=== PATIENT | female | born 1960 | race Caucasian/White ===

== ENCOUNTER 2017-03-03 22:29 | Emergency (ER) | payer OTHER ==
[2017-03-03 23:06] LABS: #Basophils 0.1 thou/uL (0.0-0.2); #Eosinphils 0.4 thou/uL (0.0-0.7); #Lymphocytes 4.3 thou/uL (1.20-3.40); #Monocytes 1.2 thou/uL (0.11-0.59); %Basophils 0.9 % (0.0-1.0); %Eosinophils 2.9 % (0.0-10.0); %Lymphocytes 30.3 % (21.0-51.0); %Monocytes 8.9 % (0.0-10.0); Hemoglobin 13.3 g/dL (12.0-16.0); Mean Corpuscular HGB CONC 32.5 g/dL (32.0-36.0); Mean Corpuscular Hemoglobin 29.3 pg (27.0-31.0); Mean Platelet Volume 10.7 fL (7.4-10.4); Platelet Count 220 thou/uL (130-400); RBC Distribution Width 14.4 % (11.5-14.5); Red Blood Cell (RBC) Count 4.55 mill/uL (4.20-5.40)
--- NOTE | 2017-03-03 23:06 | CT ---
PRELIMINARY REPORT/[facility]/EMERGENCY AFTER HOURS PROCEDURE: EXAM: CT Head Without Intravenous Contrast CLINICAL HISTORY: 56 years old, female; Signs and symptoms; Altered mental status/memory loss and speech disturbance; Confusion or disorientation; Unspecified; Patient HX: Pt presents to the er for confusion; AMS TECHNIQUE: Axial computed tomography images of the head/brain without intravenous contrast. COMPARISON: No relevant prior studies available. FINDINGS: No definite or depressed skull fracture. Included paranasal sinuses are clear. No acute intracranial hemorrhage or mass effect. Ventricle size is normal for age. No definite acute infarct by CT. MRI could be more sensitive/specific for an acute infarct if clinically indicated. IMPRESSION: No acute intracranial bleed or mass effect. No definite acute infarct by CT, see above. Thank you for allowing us to participate in the care of your patient. Dictated and Authenticated by: Gus Angeles MD 03/03/2017 11:01 PM Central Time ([place] \T\ [place]) FINAL REPORT CT OF THE BRAIN WITHOUT CONTRAST 03/03/[address] was done for evaluation of mental status changes. The ventricles are normal in size with no shift. No intracranial bleeding, mass, or sign of stroke w as found. There is good wang-white distinction. Subtle or early strokes can sometimes only be visibl e via MRI. The calvarium appears intact. The visible paranasal sinuses are clear. IMPRESSION: No acute intracranial finding. REPORT IN AGREEMENT WITH PRELIMINARY READING BY MACIE. POS: HOME
[2017-03-03 23:15] LABS: INR-International Normal Ratio 1.1; Prothrombin Time 14.3 SEC (12.0-14.7)
[2017-03-03 23:24] LABS: Acetaminophen Less than 3.0 mcg/mL (10.0-30.0); Alcohol Less than 10 mg/dL (Less than 10); Salicylate Less than 5.0 mg/dL (15.0-30.0)
[2017-03-03 23:25] LABS: CKMB 0.6 ng/mL (0-6.6); Troponin I Less than 0.010 ng/mL (< 0.028)
[2017-03-03 23:26] LABS: ALT (SGPT) 15 U/L (0-55); AST (SGOT) 12 U/L (5-34); Alkaline Phosphatase 96 U/L (40-150); Anion Gap 13 mmol/L (10-20); BUN (Urea Nitrogen) 13 mg/dL (9.8-20.1); Bilirubin, Total 0.3 mg/dL (0.2-1.2); Calc. Creatinine Clearance 0 mL/min (70-130); Calcium 9.5 mg/dL (7.8-10.44); Carbon Dioxide 28 mmol/L (22-29); Chloride 103 mmol/L (98-107); Estimated GFR-MDRD 83; Globulin 3.1 g/dL (2.4-3.5); Glucose 135 mg/dL (70-105); Potassium 3.7 mmol/L (3.5-5.1); Protein, Total 7.1 g/dL (6.0-8.3); Sodium 140 mmol/L (136-145)
--- NOTE | 2017-03-04 07:28 | RAD ---
PORTABLE CHEST: Date: 03/03/17 An AP portable film at 2325 hours is compared with an 10/08/15 study. FINDINGS: The heart is acceptable in size for AP projection and body habitus. There is no congestive change or large pleural effusion. No gross lobar infiltrate was noted. Subtle basilar infiltrates would proba sterling be missed on this study. The trachea is midline. IMPRESSION: No definite acute finding. POS: HOME
== END 2017-03-03 23:53 | disposition short-term general hospital (02) ==
LOC: BURERS 22:29
DX: I63.9 Cerebral infarction, unspecified (principal); E11.9 Type 2 diabetes mellitus without complications; J44.9 Chronic obstructive pulmonary disease, unspecified; I50.9 Heart failure, unspecified; F32.9 Major depressive disorder, single episode, unspecified; F17.210 Nicotine dependence, cigarettes, uncomplicated; Z79.899 Other long term (current) drug therapy; Z79.2 Long term (current) use of antibiotics; Z79.01 Long term (current) use of anticoagulants; Z79.82 Long term (current) use of aspirin
CPT/HCPCS: 36416; 70450; 71010; 80053; 80307; 82553; 83880; 84443; 84484; 85025; 85610; 93005

== ENCOUNTER 2019-05-14 06:27 | Emergency (ER) | payer OTHER ==
[2019-05-14 06:59] LABS: Bilirubin Negative (Negative); Blood, Urine Trace (Negative); Clarity Clear (Clear); Glucose, Urine (Dipstick) Negative (Negative); Leukocyte Negative (Negative); Nitrite Negative (Negative); Protein, Urine (Dipstick) Negative (Neg-Trace); Urobilinogen 0.2 mg/dL (0.2-1.0); WBC/HPF None Seen HPF (0-3)
[2019-05-14 07:00] LABS: Bacteria/HPF None Seen HPF (None Seen); Squamous Epithelial 0-3 HPF (0-3)
[2019-05-14 07:06] LABS: #Basophils 0.1 thou/uL (0.0-0.2); #Eosinphils 0.3 thou/uL (0.0-0.7); #Lymphocytes 2.6 thou/uL (1.20-3.40); #Monocytes 1.1 thou/uL (0.11-0.59); %Basophils 0.7 % (0.0-1.0); %Eosinophils 2.1 % (0.0-10.0); %Lymphocytes 16.4 % (21.0-51.0); %Monocytes 6.6 % (0.0-10.0); %Neutrophils 74.2 % (42.0-75.0); Hemoglobin 14.8 g/dL (12.0-16.0); Mean Corpuscular HGB CONC 30.6 g/dL (32.0-36.0); Mean Corpuscular Hemoglobin 28.5 pg (27.0-31.0); Mean Corpuscular Volume 93.2 fL (78.0-98.0); Mean Platelet Volume 10.6 fL (7.4-10.4); Platelet Count 198 thou/uL (130-400); Red Blood Cell (RBC) Count 5.18 mill/uL (4.20-5.40); White Blood Cell (WBC) Count 16.1 thou/uL (4.8-10.8)
[2019-05-14 07:24] LABS: ALT (SGPT) 23 U/L (8-55); AST (SGOT) 14 U/L (5-34); Albumin 4.3 g/dL (3.5-5.0); Alkaline Phosphatase 85 U/L (40-150); Anion Gap 18 mmol/L (10-20); BUN (Urea Nitrogen) 13 mg/dL (9.8-20.1); Bilirubin, Total 0.3 mg/dL (0.2-1.2); Calc. Creatinine Clearance 0 mL/min (70-130); Calcium 10.2 mg/dL (7.8-10.44); Carbon Dioxide 27 mmol/L (22-29); Chloride 99 mmol/L (98-107); Estimated GFR-MDRD 74; Globulin 2.9 g/dL (2.4-3.5); Glucose 196 mg/dL (70-105); Lipase 30 U/L (8-78); Potassium 3.7 mmol/L (3.5-5.1); Protein, Total 7.2 g/dL (6.0-8.3); Sodium 140 mmol/L (136-145)
[2019-05-14] MEDS ORDERED: Ketorolac Tromethamine 30 MG/ML VIAL ONE ×2 (07:46→07:51)
[2019-05-14] MEDS ORDERED: Acetaminophen/Codeine 30-300mg Tablet ONE (08:04)
--- NOTE | 2019-05-14 08:20 | CT ---
RENAL CALCULUS PROTOCOL NONCONTRAST ABDOMEN CT AND PELVIS: Date: 05/14/19 INDICATION: Left flank pain with hematuria. FINDINGS: There is mild to moderate left hydronephrosis and hydroureter, which results from punctate calcificat ion of the left UVJ, approximately 2 mm in size. There is additional calcification within the left he mipelvis, although this does reside anterolateral to the confines of the left ureter. Localized, surr ounding fat stranding in this region is present. No evidence of right side urolithiasis. Limited eval uation of the bowel, lymph nodes, solid abdominal organs, and vasculature on the basis of noncontrast technique. There are scattered pulmonary parenchymal opacities at each lung base, incompletely evalu ated, as well as granulomatous calcification. No free air. There is eventration of the ventral abdomi nal wall. Scattered vascular disease is present. There are colonic diverticula. Scattered osseous deg enerative changes are present. IMPRESSION: Mild to moderate left hydroureteronephrosis with punctate, approximately 2 mm, left UVJ calculus. In addition, there is calcification of the left hemipelvis, although this does reside anterolateral to t he course of the left ureter. Mild surrounding fat stranding of this region could relate to its proxi mity to the left ureter. As necessary, findings may be further assessed with follow-up IVP as clinica lly necessary. Additional details as discussed above. POS: [facility]
--- NOTE | 2019-05-14 10:48 | RAD ---
PORTABLE CHEST: Date: 05/14/19 An AP portable film at 0706 hours is compared with the 03/03/17 study. FINDINGS: The cardiac size is the same as before. There is no major lobar infiltrate or effusion. A minimal salas unt of streaking in the right base may be atelectasis or scarring. The overlying soft tissues decreas e the sensitivity in this region. The mediastinum appears normal and the trachea is midline. IMPRESSION: Little change since 2017. POS: HOME
== END 2019-05-14 08:11 | disposition home or self-care (01) ==
LOC: BURERS 06:27
DX: N13.2 Hydronephrosis with renal and ureteral calculous obstruction (principal); E11.9 Type 2 diabetes mellitus without complications; F32.9 Major depressive disorder, single episode, unspecified; Z79.84 Long term (current) use of oral hypoglycemic drugs
CPT/HCPCS: 71045; 74176; 80053; 81003; 81015; 83690; 85025; 96374; J1885

== ENCOUNTER 2020-12-28 09:53 | Emergency (ER) | payer OTHER ==
[2020-12-28] MEDS ORDERED: Sodium Chloride 0.9% 100 ML ONE (10:18)
[2020-12-28] MEDS ORDERED: Cefepime 2 GM VIAL ONE (10:18)
[2020-12-28 10:31] LABS: Hemoglobin 13.5 g/dL (12.0-16.0); Mean Corpuscular HGB CONC 30.7 g/dL (32.0-36.0); Mean Corpuscular Hemoglobin 28.6 pg (27.0-31.0); Mean Platelet Volume 11.7 fL (7.4-10.4); Platelet Count 181 thou/uL (130-400); RBC Distribution Width 14.7 % (11.5-14.5); Red Blood Cell (RBC) Count 4.74 mill/uL (4.20-5.40); White Blood Cell (WBC) Count 15.2 thou/uL (4.8-10.8)
[2020-12-28 10:36] LABS: ALT (SGPT) 32 U/L (8-55); AST (SGOT) 21 U/L (5-34); Albumin 3.7 g/dL (3.4-4.8); Alkaline Phosphatase 108 U/L (40-110); Anion Gap 17 mmol/L (10-20); BUN (Urea Nitrogen) 30 mg/dL (9.8-20.1); Bilirubin, Total 0.4 mg/dL (0.2-1.2); Calc. Creatinine Clearance 0 mL/min (70-130); Calcium 9.8 mg/dL (7.8-10.44); Carbon Dioxide 26 mmol/L (23-31); Chloride 96 mmol/L (98-107); Globulin 3.5 g/dL (2.4-3.5); Glucose 196 mg/dL (80-115); Protein, Total 7.2 g/dL (5.8-8.1); Sodium 135 mmol/L (136-145)
[2020-12-28] MEDS ORDERED: Digoxin 0.5 MG/2 ML AMP ONE (10:41)
[2020-12-28 10:44] LABS: Clarity Turbid (Clear); Leukocyte Large (Negative)
[2020-12-28] MEDS ORDERED: Enoxaparin Sodium 100 MG/ML SYRINGE ONE (10:47)
[2020-12-28 10:48] LABS: Band 5 % (5-11); Lymphocytes 8 % (21-51); MDiff Complete? YES; Monocytes 17 % (0-10); Neutrophil 70 % (42-75)
[2020-12-28 10:50] LABS: Glucose, Urine (Dipstick) Unable to Interpret mg/dL (Negative); Ketone, Urine Unable to Interpret mg/dL (Negative); Nitrite Unable to Interpret (Negative); Protein, Urine (Dipstick) Unable to Interpret mg/dL (Neg-Trace)
[2020-12-28 10:51] LABS: Bilirubin Unable to Interpret (Negative); Blood, Urine Unable to Interpret (Negative); Urobilinogen UNABLE TO INTERPRET mg/dL (Less than 2)
[2020-12-28 10:52] LABS: Specific Gravity, Urine 1.022 (1.002-1.036)
[2020-12-28] MEDS ORDERED: Acetaminophen 500 MG TAB ONE (10:52)
[2020-12-28 10:55] LABS: Bacteria/HPF 3+ HPF (None Seen); RBC/HPF 0-3 HPF (0-3); Squamous Epithelial 0-3 HPF (0-3); WBC/HPF Greater Than 50 HPF (0-3)
[2020-12-28] MEDS ORDERED: Amiodarone In Dextrose 200 ML ONE (11:21)
[2020-12-28 11:53] LABS: SARS-CoV-2 NAA Rapid Test Not Detected (NotDetected)
--- NOTE | 2020-12-28 14:23 | RAD ---
PORTABLE CHEST: 12/28/20 An AP portable film at 1025 is compared with a 05/14/19 study. The heart is mildly enlarged and seems perhaps a little larger than before. Also the vasculature show s very slight prominence. I do not see a lobar consolidation or effusion. It would be difficult to de tect subtle infiltrates in the left base. IMPRESSION: Mild cardiomegaly. Possible slight vascular congestion. POS: HOME
== END 2020-12-28 12:15 | disposition short-term general hospital (02) ==
LOC: BURERS 09:53
DX: A41.9 Sepsis, unspecified organism (principal); I48.92 Unspecified atrial flutter; N39.0 Urinary tract infection, site not specified; Z20.822 Contact with and (suspected) exposure to COVID-19; I50.9 Heart failure, unspecified; E11.9 Type 2 diabetes mellitus without complications; J44.9 Chronic obstructive pulmonary disease, unspecified
CPT/HCPCS: 0240U; 51701; 71045; 80053; 81003; 81015; 83605; 85025; 87040; 87077; 87086; 87186; 93005; 96365; 96372; 96375; J0282; J0692; J1160; J1650; J3490

== ENCOUNTER 2025-06-17 09:34 | Inpatient (IN) | payer OTHER ==
[2025-06-17 09:48] LABS: #Basophils 0.2 thou/uL (0.0-0.2); #Eosinophils 0.4 thou/uL (0.0-0.7); #Lymphocytes 2.0 thou/uL (1.20-3.40); #Monocytes 0.7 thou/uL (0.11-0.59); #Neutrophils 7.9 thou/uL (1.40-6.50); %Basophils 1.6 % (0.0-1.0); %Eosinophils 3.3 % (0.0-10.0); %Lymphocytes 18.0 % (21.0-51.0); %Monocytes 5.9 % (0.0-10.0); %Neutrophils 71.1 % (42.0-75.0); Hematocrit 37.2 % (36.0-47.0); Hemoglobin 12.0 g/dL (12.0-16.0); Mean Corpuscular Hemoglobin 27.1 pg (27.0-31.0); Mean Corpuscular Volume 83.8 fl (78.0-98.0); Platelet Count 241 10x3/uL (130-400); Red Blood Cell (RBC) Count 4.44 mill/uL (4.20-5.40); White Blood Cell (WBC) Count 11.1 10x3/uL (4.8-10.8)
[2025-06-17] MEDS: Ondansetron PF 4 MG/2 ML Vial ONE (10:00)
[2025-06-17] MEDS: Ketorolac Tromethamine 30 MG (1 mL) VIAL ONE (10:00)
[2025-06-17 10:07] LABS: ALT (SGPT) 9 U/L (Less than 34); AST (SGOT) 18 U/L (11-34); Albumin 3.6 g/dL (3.1-4.5); Alkaline Phosphatase 109 U/L (40-110); Anion Gap 19 mmol/L (10-20); BUN (Urea Nitrogen) 13 mg/dL (9.8-20.1); Bilirubin, Total 0.3 mg/dL (0.3-1.2); Calc. Creatinine Clearance 0 mL/min (70-130); Calcium 9.4 mg/dL (7.8-10.44); Carbon Dioxide 19 mmol/L (23-31); Chloride 104 mmol/L (98-107); Globulin 3.5 g/dL (2.4-3.5); Glucose 177 mg/dL (80-115); Potassium 4.7 mmol/L (3.5-5.1); Sodium 137 mmol/L (136-145)
[2025-06-17] MEDS: cefTRIAXone (ROCEPHIN) 1 GM VIAL ONE (11:30)
[2025-06-17 13:07] LABS: Glucose, Urine (Dipstick) 500 mg/dL (Negative); Leukocyte Small (Negative); Protein, Urine (Dipstick) > or equal to 300 mg/dL (Neg-Trace); Specific Gravity, Urine 1.015 (1.005-1.030)
[2025-06-17 13:14] LABS: Bacteria/HPF 4+ HPF (None Seen); CAUTI Indications for Culture Pelvic or flank pain; RBC/HPF 21-50 HPF (0-3); WBC/HPF 21-50 HPF (0-3); Yeast-Budding 1+ HPF (None Seen)
[2025-06-17 13:17] LABS: Urine Culture Reflex Yes Yes
[2025-06-17 15:35] VITALS: BMI 35.6
[2025-06-17] MEDS ORDERED: Ondansetron PF 4 MG/2 ML Vial IVP PRN (18:34)
[2025-06-17] MEDS ORDERED: Senokot S 8.6-50 MG TAB PO PRN (19:00)
[2025-06-17] MEDS ORDERED: Bisacodyl 10 MG SUPP PR PRN (19:00)
[2025-06-17] MEDS: Mometasone 100 MCG/PUFF (1 INHALER) INH SCH (21:17)
[2025-06-17] MEDS: Aspirin 81 mg Enteric Coated Tablet PO SCH (21:20)
[2025-06-17] MEDS: Gabapentin 300 MG CAP PO SCH (21:20)
[2025-06-17] MEDS: DULoxetine 30 MG CAP PO SCH (21:21)
[2025-06-17] MEDS: Acetaminophen 325 MG TAB PO PRN (21:41)
[2025-06-18 08:20] LABS: #Basophils 0.1 thou/uL (0.0-0.2); #Eosinophils 0.2 thou/uL (0.0-0.7); #Lymphocytes 1.5 thou/uL (1.20-3.40); #Monocytes 0.9 thou/uL (0.11-0.59); #Neutrophils 7.8 thou/uL (1.40-6.50); %Basophils 0.7 % (0.0-1.0); %Eosinophils 1.9 % (0.0-10.0); %Lymphocytes 14.0 % (21.0-51.0); %Monocytes 8.6 % (0.0-10.0); %Neutrophils 74.8 % (42.0-75.0); Hematocrit 33.5 % (36.0-47.0); Hemoglobin 10.7 g/dL (12.0-16.0); MDiff Complete? YES; Mean Corpuscular Hemoglobin 27.1 pg (27.0-31.0); Mean Corpuscular Volume 84.8 fl (78.0-98.0); Platelet Count 194 10x3/uL (130-400); Red Blood Cell (RBC) Count 3.95 mill/uL (4.20-5.40); White Blood Cell (WBC) Count 10.4 10x3/uL (4.8-10.8)
[2025-06-18] MEDS: cefTRIAXone\\ROCEPHIN 2 GM in Sodium Chloride 0.9% 100 ML IVPB SCH (08:45)
[2025-06-18] MEDS: Enoxaparin 30 MG (0.3 mL) SYRINGE SC SCH (08:46)
[2025-06-18] MEDS: Pantoprazole 40 MG DR.TAB PO SCH (08:47)
[2025-06-18 08:48] LABS: Anion Gap 14 mmol/L (10-20); BUN (Urea Nitrogen) 12 mg/dL (9.8-20.1); Calc. Creatinine Clearance 92 mL/min (70-130); Calcium 8.5 mg/dL (7.8-10.44); Carbon Dioxide 24 mmol/L (23-31); Chloride 106 mmol/L (98-107); Glucose 113 mg/dL (80-115); Potassium 4.4 mmol/L (3.5-5.1); Sodium 140 mmol/L (136-145)
[2025-06-18] MEDS: Furosemide 40 MG TAB PO SCH (09:45)
[2025-06-18] MEDS ORDERED: cefTRIAXone\\ROCEPHIN 1 GM in Sodium Chloride 0.9% 100 ML IVPB SCH (12:00)
[2025-06-18] MEDS: Acetaminophen 325 MG TAB PO PRN (17:28)
[2025-06-19] MEDS: Enoxaparin 40 MG (0.4 mL) SYRINGE SC SCH (10:27)
[2025-06-20 05:27] LABS: #Basophils 0.1 thou/uL (0.0-0.2); #Eosinophils 0.3 thou/uL (0.0-0.7); #Lymphocytes 1.9 thou/uL (1.20-3.40); #Monocytes 0.8 thou/uL (0.11-0.59); #Neutrophils 8.3 thou/uL (1.40-6.50); %Basophils 0.5 % (0.0-1.0); %Eosinophils 3.0 % (0.0-10.0); %Lymphocytes 16.5 % (21.0-51.0); %Monocytes 7.2 % (0.0-10.0); %Neutrophils 72.8 % (42.0-75.0); Hematocrit 33.4 % (36.0-47.0); Hemoglobin 10.7 g/dL (12.0-16.0); Mean Corpuscular Hemoglobin 26.3 pg (27.0-31.0); Mean Corpuscular Volume 82.7 fl (78.0-98.0); Platelet Count 206 10x3/uL (130-400); Red Blood Cell (RBC) Count 4.05 mill/uL (4.20-5.40); White Blood Cell (WBC) Count 11.4 10x3/uL (4.8-10.8)
[2025-06-20 06:04] LABS: Anion Gap 17 mmol/L (10-20); BUN (Urea Nitrogen) 14 mg/dL (9.8-20.1); Calc. Creatinine Clearance 80 mL/min (70-130); Calcium 8.6 mg/dL (7.8-10.44); Carbon Dioxide 27 mmol/L (23-31); Chloride 101 mmol/L (98-107); Glucose 141 mg/dL (80-115); Potassium 4.1 mmol/L (3.5-5.1); Sodium 141 mmol/L (136-145)
[2025-06-22 11:28] VITALS: BP 119/73; TEMP 97.7
== END 2025-06-22 11:40 | disposition home or self-care (01) | DRG 690 ==
LOC: BURERS 09:34 → BURMED 11:10
PROVIDERS: ADMIT Family Medicine; ATTEND Family Medicine
DX: N12 Tubulo-interstitial nephritis, not specified as acute or chronic (principal); I50.32 Chronic diastolic (congestive) heart failure; J96.11 Chronic respiratory failure with hypoxia; J44.89 Other specified chronic obstructive pulmonary disease; G47.33 Obstructive sleep apnea (adult) (pediatric); I11.0 Hypertensive heart disease with heart failure; I48.91 Unspecified atrial fibrillation; E78.5 Hyperlipidemia, unspecified; E11.9 Type 2 diabetes mellitus without complications; F41.9 Anxiety disorder, unspecified; F32.A Depression, unspecified; Z90.49 Acquired absence of other specified parts of digestive tract; Z98.890 Other specified postprocedural states; Z99.81 Dependence on supplemental oxygen; Z79.899 Other long term (current) drug therapy; Z87.891 Personal history of nicotine dependence; Z90.710 Acquired absence of both cervix and uterus; Z79.82 Long term (current) use of aspirin; Z82.49 Family history of ischemic heart disease and other diseases of the circulatory system
CPT/HCPCS: 36415; 74176; 80048; 80053; 81001; 83605; 85025; 87040; 87077; 87086; 87186; 94640; 96374; 96375; J0696; J1650; J1885; J2272; J2405; J7030; J7620

== ENCOUNTER 2025-10-21 13:02 | Emergency (ER) | payer MEDICARE, OTHER ==
[2025-10-21 13:26] LABS: #Basophils 0.2 thou/uL (0.0-0.2); #Eosinophils 0.3 thou/uL (0.0-0.7); #Lymphocytes 2.6 thou/uL (1.20-3.40); #Monocytes 1.0 thou/uL (0.11-0.59); #Neutrophils 13.4 thou/uL (1.40-6.50); %Basophils 1.2 % (0.0-1.0); %Eosinophils 1.6 % (0.0-10.0); %Lymphocytes 14.6 % (21.0-51.0); %Monocytes 6.0 % (0.0-10.0); %Neutrophils 76.7 % (42.0-75.0); Hematocrit 46.9 % (36.0-47.0); Hemoglobin 13.4 g/dL (12.0-16.0); Mean Corpuscular Hemoglobin 24.6 pg (27.0-31.0); Mean Corpuscular Volume 85.7 fl (78.0-98.0); Platelet Count 380 10x3/uL (130-400); Red Blood Cell (RBC) Count 5.48 mill/uL (4.20-5.40); White Blood Cell (WBC) Count 17.5 10x3/uL (4.8-10.8)
[2025-10-21] MEDS ORDERED: Ipratropium Bromide 2.5 ml Neb ONE (13:29)
[2025-10-21] MEDS ORDERED: Magnesium 2 GM/50 ML BAG (IN WATER) ONE (13:29)
[2025-10-21] MEDS ORDERED: Albuterol 2.5 MG (0.5 mL) NEB ONE (13:29)
[2025-10-21 13:36] LABS: MDiff Complete? YES; Platelet Adequacy Comment Appears Adequate
[2025-10-21 13:38] LABS: ALT (SGPT) 7 U/L (Less than 34); AST (SGOT) 13 U/L (11-34); Albumin 3.4 g/dL (3.1-4.5); Alkaline Phosphatase 112 U/L (40-110); Anion Gap 18 mmol/L (10-20); BUN (Urea Nitrogen) 16 mg/dL (9.8-20.1); Bilirubin, Total 0.2 mg/dL (0.3-1.2); Calc. Creatinine Clearance 0 mL/min (70-130); Calcium 8.8 mg/dL (7.8-10.44); Carbon Dioxide 24 mmol/L (23-31); Chloride 102 mmol/L (98-107); Globulin 3.6 g/dL (2.4-3.5); Glucose 144 mg/dL (80-115); Potassium 5.4 mmol/L (3.5-5.1); Sodium 139 mmol/L (136-145)
[2025-10-21 13:39] LABS: Troponin I 0.023 ng/mL (< 0.028)
[2025-10-21] MEDS ORDERED: Cefepime 2 GM VIAL ONE (14:35)
[2025-10-21 15:10] LABS: Bicarbonate (HCO3v) 29.6 mmol/L (22.0-28.0); CO2 Tension (PvCO2) 66.7 mmHg (42.0-51.0); Calcium, Ionized 1.21 mmol/L (1.15-1.33); Chloride 102 mmol/L (98-107); Hemoglobin - Calc 14.3 g/dL (12.0-16.0); Potassium 5.3 mmol/L (3.5-5.1); Sodium 139 mmol/L (138-145); T. Carbon Dioxide 31.7 mmol/L (22.0-28.0); vO2 Saturation-calc 94.0 % (60.0-85.0)
[2025-10-21 15:37] LABS: Bicarbonate (HCO3v) 28.5 mmol/L (22.0-28.0); CO2 Tension (PvCO2) 63.7 mmHg (42.0-51.0); Calcium, Ionized 1.20 mmol/L (1.15-1.33); Chloride 103 mmol/L (98-107); Hemoglobin - Calc 14.4 g/dL (12.0-16.0); Potassium 5.3 mmol/L (3.5-5.1); Sodium 138 mmol/L (138-145); T. Carbon Dioxide 30.5 mmol/L (22.0-28.0); vO2 Saturation-calc 93.1 % (60.0-85.0)
== END 2025-10-21 15:00 | disposition short-term general hospital (02) ==
LOC: BURERS 13:02
DX: J18.9 Pneumonia, unspecified organism (principal); R09.02 Hypoxemia; I11.0 Hypertensive heart disease with heart failure; I50.9 Heart failure, unspecified; E11.9 Type 2 diabetes mellitus without complications; J44.9 Chronic obstructive pulmonary disease, unspecified; Z79.84 Long term (current) use of oral hypoglycemic drugs; Z79.51 Long term (current) use of inhaled steroids
CPT/HCPCS: 36415; 71045; 80053; 82330; 82803; 83880; 84484; 85025; 87040; 93005; 96365; 96375; 99292; J0692; J2919; J3373; J3475; J7611; J7644